=== PATIENT | female | born 1995 | race African-American/Black ===

== ENCOUNTER 2020-09-09 04:40 | Emergency (ER) | payer MEDICAID ==
[~2020-09-09] VITALS: Ht 160 cm; Wt 69.0 kg
[2020-09-09 04:43] VITALS: BP 127/78
== END 2020-09-09 05:15 | disposition home or self-care (01) ==
LOC: ER 04:40
DX: Z30.431 Encounter for routine checking of intrauterine contraceptive device (principal); I10 Essential (primary) hypertension; Z98.890 Other specified postprocedural states
CPT/HCPCS: 99281; Z7610